=== PATIENT | female | born 1965 | race African-American/Black ===

== ENCOUNTER 2021-10-11 14:11 | Emergency (ER) | payer MEDICARE, MEDICAID ==
[~2021-10-11] VITALS: Ht 162.6 cm; Wt 65.0 kg
[2021-10-11] MEDS ORDERED: LORAZEPAM 2MG/ML CPJ IV ONE (15:00)
[2021-10-11] MEDS ORDERED: DIPHENHYDRAMINE 50MG/ML VIAL IM PRN (15:15)
[2021-10-11] MEDS ORDERED: HALOPERIDOL LACTATE 5MG/ML VIAL IM ONE (15:15)
[2021-10-11] MEDS ORDERED: SODIUM CHLORIDE 0.9% 1,000 ML IV ONE (18:00)
[2021-10-11 18:08] LABS: BASOPHILS % 0.8 % (0.0-2.0); EOSINOPHILS % 1.6 % (0.0-5.0); HEMATOCRIT. 36.3 % (36.0-48.0); HEMOGLOBIN. 11.7 g/dL (12.0-16.0); LYMPHOCYTES % 31.2 % (20.0-50.0); MEAN CORPUSCULAR VOLUME 86.6 fL (81.0-99.0); MEAN PLATELET VOLUME 7.4 fl (7.4-10.4); MONOCYTES % 8.3 % (2.0-8.0); NEUTROPHILS % 58.1 % (40.0-76.0); PLATELET 212 x1000/uL (130-400); RED BLOOD CELL COUNT 4.19 mill/uL (4.2-5.4); RED CELL DISTRIBUTION WIDTH 13.9 % (11.6-14.6)
[2021-10-11 18:14] LABS: CHLORIDE 111 mEq/L (98-107)
[2021-10-11 18:21] LABS: ETHANOL BLOOD < 10 mg/dL
[2021-10-12 01:00] VITALS: BP 103/57
== END 2021-10-12 06:50 | disposition home or self-care (01) ==
LOC: ER 14:11
DX: R07.89 Other chest pain (principal); F22 Delusional disorders; I10 Essential (primary) hypertension; Z20.822 Contact with and (suspected) exposure to COVID-19
CPT/HCPCS: 36415; 71045; 80053; 80320; 83880; 84484; 85025; 87426; 93005; 96361; 96372; 96374; 99285; C9803; J1200; J1630; J2060; U0003; U0005; G0480